=== PATIENT | female | born 2000 | race Caucasian/White ===

== ENCOUNTER 2019-08-25 07:00 | Emergency (ER) | payer SELFPAY ==
[2019-08-25 07:20] VITALS: BP 132/83; PULSE 107; RESP 18; TEMP 36.5; O2SAT 100
--- NOTE | 2019-08-25 07:41 | ED.NAVMDI ---
HPI - Nausea/Vomiting/Diarrhea General Chief complaint: Allergic Reaction Stated complaint: n/v/abd pain/allergic reaction Time Seen by Provider: 08/25/19 07:33 Source: patient Mode of arrival: ambulatory Limitations: no limitations History of Present Illness HPI Narrative: Patient is a 19-year-old female who presents to the emergency department with complaint of nausea, vomiting, and diarrhea. Patient reports having shrimp last night at a [employer] party. Patient has eaten shrimp in the past without any issues. Patient developed nausea, vomiting, and diarrhea last night and was concerned perhaps maybe she had an allergic reaction. Patient has noticed red spots on her face and thought perhaps it was an allergic reaction. Patient reports minimal itching this morning. She denies rash anywhere on her body aside from the spots she is noticed on her face. Patient feels as though her hands and feet have been swollen. She is also reports migratory abdominal cramps. Patient denies any known sick contacts or anyone else who ate the same food being ill. MD elicited complaint: nausea, vomiting, diarrhea and abdominal pain Onset (ago): hour(s) Associated nausea: Yes Associated abdominal pain: Yes Location of pain: diffuse Pain consistency: intermittent Quality: cramping Related Data Home Medications Medication Instructions Recorded Confirmed norethindrone ac-eth estradiol tablet 08/25/19 Allergies Allergy/AdvReac Type Severity Reaction Status Date / Time No Known Allergies Allergy Verified 08/25/19 07:25 Review of Systems Review of Systems: All systems reviewed & are unremarkable except as noted in HPI and below Constitutional: Constitutional: Denies chills and Denies fever(s) Gastrointestinal: Gastrointestinal: Reports abdominal pain, Reports diarrhea, Reports nausea and Reports vomiting PMFSH Past Medical History Medical History (Updated 08/25/19 @ 10:33 by Jaja Reilly MD) No significant past medical history Surgical History Surgical History (Updated 08/25/19 @ 07:45 by Jaja Reilly MD) History of tonsillectomy Social History Social History (Updated 08/25/19 @ 07:45 by Jaja Reilly MD) Smoking status: Never smoker Alcohol intake: current Alcohol use details: occasional Substance use type: marijuana Gender identity (if verbalized by the patient): Female Exam Const: General: cooperative, no acute distress and alert Nutritional Appearance: well nourished Orientation/consciousness: patient oriented x3 Limitations: no limitations HENMT: Mouth: Yes lip normal and Yes moist mucous membranes Resp: Effort & Inspection: normal respiratory effort Auscultation: clear to auscultation bilaterally Cardio: Rate: tachycardic Rhythm: regular rhythm GI: GI Palp: Yes Soft to palpation and No Tenderness to palpation present (GI) Auscultation: normal bowel sounds Skin: General skin exam: normal color Rashes: rashes noted petechiae diffuse face Neuro: General: patient oriented x3 Cognition (Neuro): normal cognition Speech: normal speech Extrem: General: normal to inspection, full ROM and no clubbing, cyanosis or edema Psych: Mental Status: mental status grossly normal Affect: normal affect Attitude: cooperative Course Course Emergency Course: Patient feeling better after Bentyl, Zofran, IV fluids. No tenderness on repeat abdominal exam. Clinical picture consistent with gastroenteritis. Patient will be sent home with medications for symptomatic management and is advised to follow-up with primary care and to return to the ED if severely worsening symptoms. Vital Signs Vital signs: Vital Signs Temperature 97.7 F 08/25/19 07:20 Pulse Rate 107 H 08/25/19 07:20 Respiratory Rate 18 08/25/19 07:20 Blood Pressure 132/83 08/25/19 07:20 Pulse Oximetry 100 08/25/19 07:20 Temperature 97.7 F 08/25/19 07:20 Pulse Rate 88 08/25/19 09:12 Respirator
[2019-08-25] MEDS: LACTATED RINGERS 1,000 ML 999 ML IV CONT (07:53)
[2019-08-25] MEDS: DICYCLOMINE HCL INJ 20 MG/2 ML VIAL IM (07:53)
[2019-08-25] MEDS: ONDANSETRON INJ 4 MG/2 ML VIAL IV PUSH (07:54)
[2019-08-25 08:07] LABS: Basophils Percent Auto 0.2 % (0.2-1.2); Eosinophils Percent Auto 0.1 % (0-4.4); Hemoglobin 14.8 g/dL (12.0-15.0); Immature Granulocyte Percent A 0.7 % (0-0.5); Lymphocytes Absolute Auto 0.41 K/mm3 (0.9-3.2); Mean Corpuscular HGB Conc 32.9 g/dl (32-36); Mean Corpuscular Hemoglobin 26.8 pg (26-34); Mean Corpuscular Volume 81.4 fl (80-100); Mean Platelet Volume 9.5 fl (7.4-10.4); Monocytes Absolute Auto 0.5 K/mm3 (0.1-0.6); Monocytes Percent Auto 3.5 % (2.6-8.5); Neutrophils Absolute Auto 12.7 K/mm3 (1.3-6.7); Neutrophils Percent Auto 92.5 % (45.5-73.1); Platelet Count Result 278 k/mm3 (150-375); Red Blood Count 5.53 M/mm3 (4.2-5.4); White Blood Count 13.7 K/mm3 (4.5-10.0)
[2019-08-25 08:10] LABS: Add Urine Microscopic? YES; Appearance Urine Clear (Clear); Bacteria Urine Trace /hpf; Bilirubin Urine Negative (Negative); Blood Urine Negative (Negative); Color Urine Yellow (Yellow); Glucose Urine UA Negative (Negative); Ketones Urine Trace mg/dL (Negative); Leukocyte Esterase Ur Negative LEU/UL (Negative); Mucus Urine Rare /lpf; Nitrate Urine Negative (Negative); Protein Urine 1+ mg/dL (Negative); RBC Urine 0-2 /hpf (0-2); Squamous Epithelial Cell Urine Moderate /hpf (Few); Urobilinogen Urine Negative mg/dL (<2.0); WBC Urine 0-3 /hpf
[2019-08-25 08:12] LABS: Specific Grav Ur 1.031 (1.001-1.035)
[2019-08-25 08:15] LABS: INR 1.1; Prothrombin Time 13.5 Seconds (11.1-14.7)
[2019-08-25 08:16] LABS: Partial Thromboplastin Time 29.7 SECONDS (22.3-36.8)
[2019-08-25 08:18] LABS: Alanine Aminotransferase 17 U/L (4-35); Albumin Level 4.2 g/dL (3.5-5.1); Alkaline Phosphatase 58 U/L (38-126); Aspartate Amino Transferase 20 U/L (14-36); Bilirubin,Total 0.6 mg/dL (0.2-1.3); Blood Urea Nitrogen 23 mg/dL (7-17); Calcium 8.9 mg/dL (8.4-10.2); Carbon Dioxide 21 mmol/L (22-30); Chloride 99 mmol/L (98-107); Estimated CRCL calculation 198 ml/min; Estimated Glomerular Filt Rate > 60; Glucose 112 mg/dL (65-105); Lipase 62 U/L (23-300); Potassium 3.3 mmol/L (3.4-5.0); Sodium 135 mmol/L (137-145)
[2019-08-25 09:12] VITALS: BP 111/69; PULSE 88; RESP 20; O2SAT 100
[2019-08-25 10:47] VITALS: BP 141/88; PULSE 96; RESP 18; O2SAT 97
--- NOTE | 2019-09-01 14:08 | PC.NURSE ---
LATE ENTRY This note is being entered to document information to the patient's record. The following information was omitted on [08/25/2019], by [Homa Kat]. NS stop time is 0900
== END 2019-08-25 10:49 | disposition home or self-care (01) ==
PROVIDERS: Emergency Provider Emergency Medicine; PCP Family Medicine
DX: K52.9 Noninfective gastroenteritis and colitis, unspecified (principal); E86.0 Dehydration
CPT/HCPCS: 36415; 80053; 81001; 81025; 83690; 85025; 85610; 85730; 87804; 96361; 96372; 96374; 99284; J0500; J2405; J7120